=== PATIENT | male | born 1945 | race Two or more races ===

== ENCOUNTER 2018-04-15 13:07 | Outpatient (CLI) | payer MEDICARE, OTHER ==
[~2018-04-15] VITALS: Ht 175.3 cm; Wt 101.2 kg
[2018-04-15 13:40] VITALS: BP 125/60
[2018-04-15] MEDS ORDERED: DM med (13:44)
--- NOTE | 2018-04-15 14:11 | GI Initial Consult Note ---
History of Present Illness General Date patient seen: Apr 15, 2018 Time patient seen: 14:08 Referring physician: DARRON Reason for Consultation: SCREENING COLON Present Illness HPI 72 year old male referred by Dr. Perry for routine colonoscopy screening. Per patient, last colonoscopy was 10+ years ago. He presents today with c/o of GERD. Denies any abdominal pain, N/V/D or constipation. Denies any unintentional weight loss or changes in dietary habits. No signs of abuse or neglect. Patient is not fall risk. Home Meds Reported Medications [DM med] No Conflict Check 04/15/18 Med list reviewed/reconciled: Yes Allergies: Coded Allergies: No Known Allergies (Unverified , 04/15/18) Patient History History Provided By: Patient PMH Narrative DM No surgical history. Pertinent Family History: none Social History: Denies: smoking, alcohol use, drug use, other Review of Systems All Other Systems: negative except mentioned in HPI Physical Exam Vital Signs Date Time Temp Pulse Resp B/P (MAP) Pulse Ox O2 Delivery O2 Flow Rate FiO2 04/15/18 13:40 98.0 82 16 125/60 94 98.0 Sp02 EP Interpretation: reviewed, normal General Appearance: well appearing, no apparent distress, alert Head: normocephalic EENT: PERRL/EOMI, normal ENT inspection Neck: supple Respiratory: normal breath sounds, no respiratory distress Cardiovascular: normal rate Gastrointestinal: normal inspection, non tender, soft, normal bowel sounds, non -distended Rectal: deferred Genitourinary: deferred Musculoskeletal: normal inspection, back normal Neurologic: normal inspection, alert, oriented x3, responsive Psychiatric: normal inspection, judgement/insight normal, memory normal Skin: normal inspection, normal color, no rash, warm/dry, palpation normal, well hydrated Lymphatic: normal inspection, no adenopathy GI: Plan Problems: (1) GERD (gastroesophageal reflux disease) (2) Diabetes mellitus (3) Colonoscopy planned Plan EGD/colonoscopy scheduled 05/10/18. - CLD & (Nulytely/Suprep/Movi-Prep) prep instructions given and acknowledged by patient. - NPO @ [place] day prior procedure explained. Seen with Dr. Patel. Thank you for this patient referral. The patient was seen and examined at bedside and all new and available data was reviewed in the patients chart. I agree with the above findings, impression and plan. (Patient seen earlier today. Signature stamp does not reflect patient encounter time.). - MD Annika MonaeO[facility] HospitalSh[facility] Apr 15, 2018 14:11
== END 2018-04-15 13:37 | disposition home or self-care (01) ==
LOC: PAN 13:07
DX: K21.9 Gastro-esophageal reflux disease without esophagitis (principal); E11.9 Type 2 diabetes mellitus without complications
CPT/HCPCS: 99201

== ENCOUNTER 2018-05-10 09:32 | Day surgery (SDC) | payer MEDICARE, MEDICAID ==
[~2018-05-10] VITALS: Ht 175.3 cm; Wt 97.5 kg
[2018-05-10] VITALS (11 sets, daily range): BP systolic 104–138; BP diastolic 47–78
--- NOTE | 2018-05-10 06:12 | Anethesia Preoperative Eval ---
Anesthesia Pre-op PMH/ROS General Date of Evaluation: May 10, 2018 Time of Evaluation: 06:10 Anesthesiologist: kiarra ASA Score: ASA 3 Mallampati Score Class I : Soft palate, uvula, fauces, pillars visible Class II: Soft palate, uvula, fauces visible Class III: Soft palate, base of uvula visible Class IV: Only hard plate visible Mallampati Classification: Class II Surgeon: marielena Diagnosis: colon screening, gerd Surgical Procedure: egd/colonoscopy Anesthesia History: none Social History: current smoker Family History: no anesthesia problems Allergies: Coded Allergies: No Known Allergies (Unverified , 04/15/18) Medications: see eMAR Past Medical History Gastrointestinal/Genitourinary: Reports: GERD Endocrine: Reports: DM Other: obesity Anesthesia Pre-op Phys. Exam Physician Exam Constitutional: NAD Neurologic: CN 2-12 intact Cardiovascular: RRR Respiratory: CTA Gastrointestinal: S/NT/ND Airway Exam Mallampati Score: Class II MO: limited Neck: short TMD: 2fb ROM: limited Anesthesia Pre-op A/P Risk Assessment & Plan Assessment: asa3 Plan: mac Status Change Before Surgery: No Pre-Antibiotics Drug: Mariama Lema MD May 10, 2018 06:12
[~2018-05-10 09:32] MED LIST: Atropine Inj 1mg/10ml Syr IV PRN; DM med; DiphenhydrAMINE 50mg/ml Inj IVP PRN; Midazolam 2mg/2ml Inj IVP PRN; fentaNYL 100 mcg/2 mL IV PRN
[2018-05-10] MEDS ORDERED: INVOKANA300 MG PO (09:57)
[2018-05-10] MEDS ORDERED: Lidocaine 1% MPF 10mg/ml 5ml ONE (11:00)
[2018-05-10] MEDS ORDERED: Propofol 200mg/20ml IV ONE (11:00)
--- NOTE | 2018-05-10 11:04 | Short Stay Surgery H&P ---
History of Present Illness History of Present Illness Chief Complaint see recent office consult note HPI Taqueria Hernandez is a 72 year old male who was admitted on for Colon Screening,Gerd Patient History Allergies: Coded Allergies: No Known Allergies (Unverified , 04/15/18) Medication History Scheduled Canagliflozin (Invokana), 300 MG PO DAILY, (Reported) Physical Exam Vital Signs Last Vital Signs Date Time Temp Pulse Resp B/P (MAP) Pulse Ox O2 Delivery O2 Flow Rate FiO2 05/10/18 10:23 97.5 66 18 130/70 (90) 95 97.5 05/10/18 10:02 Room Air Plan Attestation Are the patient's medical conditions optimized for surgery? Tushar Patel MD May 10, 2018 11:04
--- NOTE | 2018-05-10 11:04 | Pre-Procedure Note/Attestation ---
Pre-Procedure Note/Attestation Complete Prior to Procedure Planned Procedure: not applicable Procedure Narrative: esophagogastroduodenoscopy and colonoscopy Indications for Procedure Pre-Operative Diagnosis: screening colon, GERD Attestation I attest that I discussed the nature of the procedure; its benefits; risks and complications; and alternatives (and the risks and benefits of such alternatives ), prior to the procedure, with the patient (or the patient's legal outside dealer sales representative). I attest that, if there was a reasonable possibility of needing a blood transfusion, the patient (or the patient's legal outside dealer sales representative) was given the [facility] standardized written summary, pursuant to the [place] Blood Safety Act ([place] Health and Safety Code # 1645, as amended). I attest that I re-evaluated the patient just prior to the surgery and that there has been no change in the patient's H&P, except as documented below: Tushar Patel MD May 10, 2018 11:04
--- NOTE | 2018-05-10 12:00 | Endoscopy Procedure Note ---
Endoscopy Procedure Note General Indication for Procedure: screening colon, GERD Procedures Performed: EGD, colonoscopy Operative Findings/Diagnosis: gastritis, 5 colon polyps Specimen: yes Pt Tolerated Procedure Well: Yes Estimated Blood Loss: none Anesthesia Anesthesiologist: elmer Anesthesia: MAC Inserted Devices Implant(s) used?: No Quality Quality of Bowel Preparation: Good Did scope reach the cecum?: Yes Was there any complications?: No GI Core Measures 50 yrs or older w/o bx or poly: No 10yrs. F/U not recommended: Yes If not recommended, why?: Above average risk 10 yrs. F/U needed: Yes 18 years or older w/prev. colo: No Tushar Patel MD May 10, 2018 12:00
--- NOTE | 2018-05-10 13:15 | Procedure Note ---
DATE OF PROCEDURE: 05/10/2018 SURGEON: Tushar Patel M.D. PROCEDURE: Upper endoscopy with biopsy and colonoscopy with biopsy and snare polypectomy. ANESTHESIOLOGIST: Dr. Juarez. INSTRUMENT: Olympus adult flexible upper endoscope and colonoscope. INDICATION: Screening colonoscopy. Chronic GERD. REASON FOR PROCEDURE: The procedure, risks, benefits, and possible consequences, including hemorrhage, aspiration, perforation and infection, and alternative treatments, were explained to the patient/legal guardian by Dr. Tushar Patel and the patient/legal guardian understood and accepted these risks. DESCRIPTION OF PROCEDURE: After informed consent was obtained and the patient was adequately sedated, Olympus upper scope was advanced from the mouth to the second portion of the duodenum and retroflexion was performed in the stomach. The patient had evidence of diffuse gastritis. Random biopsy from antrum and body was obtained to rule out H. pylori infection. The patient had about 3 or 4 shallow erosions in the antrum of the stomach in the prepyloric region. In the duodenum, there was evidence of mild duodenitis. The patient had a small gastric AVM less than 1 cm. At this time, the upper endoscope was retrieved and the patient was turned over for colonoscopy. First, rectal exam performed, which was positive for internal hemorrhoids. Then, the scope was advanced from the rectum into the cecum documented by appendiceal orifice, ileocecal valve, and right upper quadrant palpation. Quality of prep was very good. For colonoscopy, scope was advanced from the rectum into the cecum documented by appendiceal orifice, ileocecal valve, and right upper quadrant palpation. Quality of prep was good. The patient had a total of five polyps removed in this colonoscopy examination. One in transverse and four in the rectosigmoid area. The one in transverse was removed with a cold snare polypectomy technique, measured roughly about 6 mm. The rest of the polyps were small and removed with cold biopsy forceps technique. The patient also had one colonic AVM in the sigmoid area, measured roughly about 1 cm. It was not given no active bleeding at this time. Retroflexion of rectum was performed, which showed evidence of medium-sized internal hemorrhoids. SUMMARY OF FINDINGS: 1. Gastritis, status post biopsy. 2. Gastric erosions. 3. Duodenitis. 4. Gastric AVM. 5. Internal hemorrhoids. 6. Five colonic polyps removed, see above for details. 7. Colonic AVM x1. RECOMMENDATIONS: Resume diet. Follow biopsy results. Repeat colonoscopy in three years, given five polyps. I want to thank Dr. Perry, for this kind referral. Tushar Patel M.D. DR: JOHN JOB#: [id number] CC: Samir Perry M.D.; Fax#: [phone]
--- NOTE | 2018-05-10 13:44 | Immediate Post-Op Evaluation ---
Immediate Post-Op Evalulation Immediate Post-Op Evalulation Procedure: egd/colonoscopy w/bx Date of Evaluation: May 10, 2018 Time of Evaluation: 12:13 IV Fluids: 550ml lr Blood Products: none Estimated Blood Loss: negligible Blood Pressure Diastolic: 52 Pulse Rate: 58 Respiratory Rate: 18 O2 Sat by Pulse Oximetry: 100 Temperature (Fahrenheit): 98.0 Pain Score (1-10): 0 Nausea: No Vomiting: No Complications none Patient Status: awake, reacts, patent Hydration Status: adequate Drug: Mariama Lema MD May 10, 2018 13:44
--- NOTE | 2018-05-10 13:46 | 48 Hour Post Anesthesia Eval ---
Post Anesthesia Evaluation Procedure: egd/colonoscopy w/bx Date of Evaluation: May 10, 2018 Time of Evaluation: 12:15 Blood Pressure Systolic: 109 0: 55 Pulse Rate: 55 Respiratory Rate: 18 Temperature (Fahrenheit): 98.0 O2 Sat by Pulse Oximetry: 100 Airway: patent Nausea: No Vomiting: No Pain Intensity: 0 Hydration Status: adequate Cardiopulmonary Status: stable Mental Status/LOC: patient returned to baseline Post-Anesthesia Complications: none Follow-up care needed: N/A Mariama Sosa MD May 10, 2018 13:46
--- NOTE | 2018-05-11 14:23 | Cardiology Report ---
APPROVED REPORT EKG Measurement Heart [id number] Normal sinus rhythm Normal ECG
== END 2018-05-10 13:30 | disposition home or self-care (01) ==
LOC: GAS 09:32
DX: Z12.11 Encounter for screening for malignant neoplasm of colon (principal); K64.8 Other hemorrhoids; D12.3 Benign neoplasm of transverse colon; K63.5 Polyp of colon; Q27.33 Arteriovenous malformation of digestive system vessel; K21.9 Gastro-esophageal reflux disease without esophagitis; K29.70 Gastritis, unspecified, without bleeding; B96.81 Helicobacter pylori [H. pylori] as the cause of diseases classified elsewhere; K29.80 Duodenitis without bleeding; K25.9 Gastric ulcer, unspecified as acute or chronic, without hemorrhage or perforation; E11.9 Type 2 diabetes mellitus without complications; E66.9 Obesity, unspecified; F17.200 Nicotine dependence, unspecified, uncomplicated
CPT/HCPCS: 43239; 45380; 45385; 82962; 93005; J2704; 94003; 94150

== ENCOUNTER 2020-08-14 10:49 | Outpatient (CLI) | payer MEDICARE, MEDICAID ==
[~2020-08-14 10:49] MED LIST changes: -Atropine Inj 1mg/10ml Syr IV PRN; -DiphenhydrAMINE 50mg/ml Inj IVP PRN; +INVOKANA300 MG PO; -Midazolam 2mg/2ml Inj IVP PRN; -fentaNYL 100 mcg/2 mL IV PRN
[2020-08-14 11:25] VITALS: BP 156/81
== END 2020-08-14 12:59 | disposition home or self-care (01) ==
LOC: PAN 10:49
DX: R10.9 Unspecified abdominal pain (principal)
CPT/HCPCS: 99212